=== PATIENT | female | born 1965 ===

== ENCOUNTER 2017-02-04 11:07 | Inpatient (IN) | payer MEDICARE ==
[2017-02-04 11:13] VITALS: BMI 28.3
[2017-02-04] MEDS ORDERED: Iohexol 240 (50 ml) PO ONE (12:00)
[2017-02-04] MEDS ORDERED: Iohexol 240 (50 ml) ONE (12:07)
--- NOTE | 2017-02-04 12:16 | ED PDOC ---
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 Pain is mostly right sided with radiation to the back. Pain is associated with nausea but no vomiting. Denies similar pain in the past. Past Medical History Reviewed: Historical Data, Nursing Documentation, Vital Signs Vital Signs: Last Vital Signs Temp 98 F 02/04/17 11:11 Pulse 71 02/04/17 11:11 Resp BP 143/86 02/04/17 11:11 Pulse Ox 100 02/04/17 15:03 - Medical History PMH: HTN, Migraine Denies: Chronic Kidney Disease - Surgical History Surgical History: Appendectomy - Family History Family History: States: Unknown Family Hx - Living Arrangements Living Arrangements: With Family - Home Medications Home Medications: Ambulatory Orders Medication Instructions Recorded Aspirin [Aspirin EC] 325 mg PO DAILY 01/14/17 Omeprazole 01/14/17 traMADol [Ultram] 25 mg PO TID PRN #30 tab 01/15/17 - Allergies Allergies/Adverse Reactions: Allergies Allergy/AdvReac Type Severity Reaction Status Date / Time No Known Allergies Allergy Verified 02/04/17 11:34 Review of Systems ROS Statement: Except As Marked, All Systems Reviewed And Found Negative Constitutional: Negative for: Fever, Chills Cardiovascular: Negative for: Chest Pain Respiratory: Negative for: Shortness of Breath Gastrointestinal: Positive for: Nausea, Abdominal Pain. Negative for: Vomiting , Diarrhea Genitourinary Female: Negative for: Dysuria, Hematuria Musculoskeletal: Positive for: Back Pain Neurological: Negative for: Weakness, Numbness Physical Exam - Reviewed Nursing Documentation Reviewed: Yes Vital Signs Reviewed: Yes - Physical Exam Appears: Positive for: Uncomfortable (moderate painful distress ) Skin: Positive for: Normal Color, Warm Eye Exam: Positive for: Normal appearance Neck: Positive for: Normal, Painless ROM Cardiovascular/Chest: Positive for: Regular Rate, Rhythm. Negative for: Murmur Respiratory: Positive for: Normal Breath Sounds. Negative for: Respiratory Distress Gastrointestinal/Abdominal: Positive for: Tenderness (moderate right sided). Negative for: Distended, Guarding, Rebound Back: Positive for: Normal Inspection, L CVA Tenderness, R CVA Tenderness Extremity: Positive for: Normal ROM Neurologic/Psych: Positive for: Alert, Oriented - Laboratory Results Result Diagrams: 02/04/17 12:26 02/04/17 12:26 - ECG O2 Sat by Pulse Oximetry: 100 (RA) Pulse Ox Interpretation: Normal Medical Decision Making Medical Decision Making: Time: Initial impression: Abdominal pain Initial plan: -- CT-abdomen -- EKG -- Amylase -- CMP -- UDS -- Lipase -- Troponin -- Urine preg -- CBC -- Morphine -- Toradol -- Zofran -- U/A Scribe Attestation: Documented by Jenny Fermin acting as a scribe for Guzman Chaudhari PA-C. MD Scribe Attestation: All medical record entries made by the Scribe were at my direction and personally dictated by me. I have reviewed the chart and agree that the record accurately reflects my personal performance of the history, physical exam, medical decision making, and the department course for this patient. I have also personally directed, reviewed, and agree with the discharge instructions and disposition. Labs reviewed 13.4 WBC count, LFT, lipase, trop normal CT: IMPRESSION: Hepatomegaly. Multiple small nonspecific low-attenuation lesions in the right and left hepatic lobes, nonspecific. No biliary dilatation. Dilated pancreatic duct with intermediate attenuation material in distal CBD at the level of the ampulla. Possible choledocholithiasis. Consider neoplasm or sludge. Recommend ERCP or MRCP. Small hiatal hernia. Colonic diverticulosis without diverticulitis. pain has improved. still with tenderness to the mid abdomen, improved. no further nausea. discussed CT results with her and need for further inpatient evaluation. all questions answered. patient with no PMD at this hospital. 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 Case discussed with Dr. Lawson in detail, including H&P, labs, CT finding and agrees with admission. Requests GI. agrees with chris. Case discussed with Dr. Lenka FLORES, recommends MRCP- ordered. will follow. ED OBSERVATION Date of observation admission: 02/04/17 Time of observation admission: 12:07 - Observation admission statement Patient is being placed in observation because:: Pending CT and labs Disposition - Clinical Impression Clinical Impression: Abdominal pain, Choledocholithiasis, Urinary tract infection - Patient ED Disposition Is Patient to be Admitted: Yes Counseled Patient/Family Regarding: Studies Performed, Diagnosis - Disposition Disposition Time: 15:59 Condition: IMPROVED - Pt Status Changed To: Hospital Disposition Of: Inpatient - Admit Certification Admit to Inpatient:: After my assessment, the patient will require hospitalization for at least two midnights. This is because of the severity of symptoms shown, intensity of services needed, and/or the medical risk in this patient being treated as an outpatient. - POA Present On Arrival: None
[2017-02-04 12:36] LABS: BASO # 0.1 K/uL (0.0-0.2); BASO % 0.4 % (0.0-2.0); EOS # 0.2 K/uL (0.0-0.7); EOS % 1.6 % (0.0-4.0); HEMATOCRIT 40.2 % (34.0-47.0); LYMPH # 2.3 K/uL (1.0-4.3); LYMPH % 16.9 % (20.0-40.0); MEAN CELL VOLUME 91.6 fl (81.0-99.0); MEAN CORPUSCULAR HEMOGLOBIN 29.8 pg (27.0-31.0); MEAN CORPUSCULAR HGB CONC 32.5 g/dL (33.0-37.0); MEAN PLATELET VOLUME 9.4 fl (7.2-11.7); MONO % 7.5 % (0.0-10.0); NEUT # 9.9 K/uL (1.8-7.0); NEUT % 73.6 % (50.0-75.0); NRBC % 0.2 % (0.0-0.0); RBC URINE 17 /hpf (0-3); RED CELL DISTRIBUTION WIDTH 13.8 % (11.5-14.5); URINE BACTERIA RARE (<OCC); URINE BILIRUBIN NEGATIVE (NEGATIVE); URINE BLOOD MODERATE (NEGATIVE); URINE COLOR STRAW (YELLOW); URINE GLUCOSE (UA) NEG (Normal); URINE KETONE NEGATIVE (NEGATIVE); URINE LEUKOCYTE ESTERASE SMALL Leu/uL (Negative); URINE PROTEIN NEGATIVE (NEGATIVE); URINE UROBILINOGEN 0.2-1.0 mg/dL (0.2-1.0); WBC URINE < 1 /hpf (0-5); WHITE BLOOD COUNT 13.4 K/uL (4.8-10.8)
[2017-02-04 12:41] LABS: ALB/GLOB RATIO 1.3 (1.0-2.1); ALKALINE PHOSPHATASE 67 U/L (38-126); ALT/SGPT 27 U/L (9-52); AMYLASE 107 U/L (30-110); AST/SGOT 27 U/L (14-36); BILIRUBIN,TOTAL 0.2 mg/dl (0.2-1.3); BLOOD UREA NITROGEN 17 mg/dl (7-17); CALCIUM 9.7 mg/dL (8.4-10.2); CARBON DIOXIDE 26 mmol/L (22-30); CHLORIDE 105 mmol/L (98-107); GFR AFRICAN-AMERICAN > 60; GLUCOSE,RANDOM 89 mg/dL (65-105); LIPASE 151 U/L (23-300); POTASSIUM 3.7 MMOL/L (3.6-5.0); SODIUM 139 mmol/l (132-148); TOTAL PROTEIN 7.6 G/DL (6.3-8.2)
[2017-02-04] MEDS ORDERED: Iohexol 300 100 ML IJ ONE (13:28)
[2017-02-04] MEDS ORDERED: Sodium Chloride 0.9% 100 ML ONE (13:28)
--- NOTE | 2017-02-04 14:42 | CT ---
PROCEDURE: CT Abdomen and Pelvis with contrast HISTORY: abdominal pain COMPARISON: 02/28/2014 TECHNIQUE: Contrast dose: 95 mL Omnipaque 300 Radiation dose: Total exam DLP = 604.22 mGy-cm. FINDINGS: LOWER THORAX: Very small hiatal hernia. No infiltrate/effusion. LIVER: Multiple very small low-attenuation lesions in both the right and left lobe of the liver common nonspecific. Comparison to prior examination is grossly limited due to the absence of intravenous contrast on the prior examination and the resulting lack of con spicule ET of these lesions. Several of them are nevertheless evidenced on prior examination. No large mass. No biliary dilatation. Hepatomegaly. The liver measures 20.2 cm craniocaudal. Smooth contour. GALLBLADDER AND BILE DUCTS: Unremarkable. PANCREAS: No mass. Mild pancreatic ductal dilatation. There is intermediate attenuation in the distal common bile duct, at the level of the ampulla. This may represent a noncalcified gallstone or may represent sludge or neoplasm. Further evaluation is advised. Consider ERCP or MRCP. There is no dilatation of the common bile duct. SPLEEN: Unremarkable. ADRENALS: Unremarkable. No mass. KIDNEYS AND URETERS: Unremarkable. No hydronephrosis. No solid mass. VASCULATURE: Unremarkable. No aortic aneurysm. BOWEL: Diverticulosis of the transverse colon with sigmoid diverticulosis and few scattered diverticulae elsewhere. No evidence of diverticulitis. No bowel obstruction. APPENDIX: Not identified. PERITONEUM: Unremarkable. No free fluid. No free air. LYMPH NODES: Unremarkable. No enlarged lymph nodes. BLADDER: Unremarkable. REPRODUCTIVE: Unremarkable uterus. BONES: No acute fracture. OTHER FINDINGS: None. IMPRESSION: Hepatomegaly. Multiple small nonspecific low-attenuation lesions in the right and left hepatic lobes, nonspecific. No biliary dilatation. Dilated pancreatic duct with intermediate attenuation material in distal CBD at the level of the ampulla. Possible choledocholithiasis. Consider neoplasm or sludge. Recommend ERCP or MRCP. Small hiatal hernia. Colonic diverticulosis without diverticulitis.
[2017-02-04] MEDS ORDERED: Piperacillin/Tazobact 3.375 gm Inj IVPB ONE (15:38)
[2017-02-04] MEDS ORDERED: Piperacillin/Tazobact 3.375 GM in Sodium Chloride 0.9% 100 ML IVPB ONE (15:45)
--- NOTE | 2017-02-04 19:15 | CP.PCM.CON ---
History of Present Illness - History of Present Illness History of Present Illness: 51 YO FEMALE WITH HX OF ABD PAIN ON AND OFF SINCE January DENIES FEVER CHILLS PAIN MAINLY RUQ AND MID EPIGASTRIC ID CALLED FOR EMPIRIC IV ANTBIOTICS POSSIBLE ASCENDING CHOLANGITIS GI ON BOARD : FOR ERCP IN AM CT: IMPRESSION: Hepatomegaly. Multiple small nonspecific low-attenuation lesions in the right and left hepatic lobes, nonspecific. No biliary dilatation. Dilated pancreatic duct with intermediate attenuation material in distal CBD at the level of the ampulla. Possible choledocholithiasis. Consider neoplasm or sludge. Recommend ERCP or MRCP. Small hiatal hernia. Colonic diverticulosis without diverticulitis. Past Patient History - Past Medical History & Family History Past Medical History?: Yes - Past Social History Smoking Status: Never Smoked - CARDIAC Hx Cardiac Disorders: Yes Hx Hypertension: Yes - PULMONARY Hx Respiratory Disorders: Yes Other/Comment: RT lung nodule - NEUROLOGICAL Hx Neurological Disorder: Yes Hx Migraine: Yes - HEENT Hx HEENT Problems: No - RENAL Hx Chronic Kidney Disease: No - ENDOCRINE/METABOLIC Hx Endocrine Disorders: No - HEMATOLOGICAL/ONCOLOGICAL Hx Blood Disorders: No - INTEGUMENTARY Hx Dermatological Problems: No - MUSCULOSKELETAL/RHEUMATOLOGICAL Hx Musculoskeletal Disorders: Yes Hx Falls: Yes (Jun 2016, landed on back) - GASTROINTESTINAL Hx Gastrointestinal Disorders: No - GENITOURINARY/GYNECOLOGICAL Hx Genitourinary Disorders: No - PSYCHIATRIC Hx Psychophysiologic Disorder: No Hx Substance Use: No - SURGICAL HISTORY Hx Surgeries: Yes Hx Appendectomy: Yes Other/Comment: Rt arm surgeries x2. Abdominal surgery due to adhiscence - ANESTHESIA Hx Anesthesia: Yes Hx Anesthesia Reactions: No Meds Allergies/Adverse Reactions: Allergies Allergy/AdvReac Type Severity Reaction Status Date / Time No Known Allergies Allergy Verified 02/04/17 11:34 - Medications Medications: Current Medications Acetaminophen (Tylenol 325mg Tab) 650 mg PO Q6 PRN PRN Reason: Pain, Mild (1-3) Enoxaparin Sodium (Lovenox) 40 mg SC DAILY [facility] PRN Reason: Protocol Sodium Chloride (Sodium Chloride 0.45%) 1,000 mls @ 100 mls/hr IV .Q10H [facility] Stop: 02/05/17 19:01 Piperacillin Sod/Tazobactam (Sod 3.375 gm/ Sodium Chloride) 100 mls @ 100 mls/ hr IVPB Q6 [facility] Isosorbide Mononitrate (Imdur) 30 mg PO DAILY [facility] Ketorolac Tromethamine (Toradol) 15 mg IVP Q6 PRN PRN Reason: Pain, moderate (4-7) Losartan Potassium (Cozaar) 25 mg PO DAILY [facility] Morphine Sulfate (Morphine) 2 mg IVP Q6 PRN PRN Reason: Pain, severe (8-10) Ondansetron HCl (Zofran Inj) 4 mg IVP Q6 PRN PRN Reason: Nausea/Vomiting Results - Vital Signs Recent Vital Signs: Last Vital Signs Temp 97.9 F 02/04/17 18:05 Pulse 57 L 02/04/17 18:05 Resp 18 02/04/17 18:20 BP 156/87 H 02/04/17 18:05 Pulse Ox 99 02/04/17 18:05 - Labs Result Diagrams: 02/04/17 12:26 02/04/17 12:26
[2017-02-04] MEDS: Sodium Chloride 0.45% 1,000 ML IV SCH (20:41)
[2017-02-04] MEDS: Piperacillin/Tazobact 3.375 GM in Sodium Chloride 0.9% 100 ML IVPB SCH (22:07)
--- NOTE | 2017-02-04 22:30 | CP.PCM.HP ---
Past Patient History - Past Medical History & Family History Past Medical History?: Yes - Past Social History Smoking Status: Never Smoked - CARDIAC Hx Cardiac Disorders: Yes Hx Hypertension: Yes - PULMONARY Hx Respiratory Disorders: Yes Other/Comment: RT lung nodule - NEUROLOGICAL Hx Neurological Disorder: Yes Hx Migraine: Yes - HEENT Hx HEENT Problems: No - RENAL Hx Chronic Kidney Disease: No - ENDOCRINE/METABOLIC Hx Endocrine Disorders: No - HEMATOLOGICAL/ONCOLOGICAL Hx Blood Disorders: No - INTEGUMENTARY Hx Dermatological Problems: No - MUSCULOSKELETAL/RHEUMATOLOGICAL Hx Musculoskeletal Disorders: Yes Hx Falls: Yes (Jun 2016, landed on back) - GASTROINTESTINAL Hx Gastrointestinal Disorders: No - GENITOURINARY/GYNECOLOGICAL Hx Genitourinary Disorders: No - PSYCHIATRIC Hx Psychophysiologic Disorder: No Hx Substance Use: No - SURGICAL HISTORY Hx Surgeries: Yes Hx Appendectomy: Yes Other/Comment: Rt arm surgeries x2. Abdominal surgery due to adhiscence - ANESTHESIA Hx Anesthesia: Yes Hx Anesthesia Reactions: No Meds Allergies/Adverse Reactions: Allergies Allergy/AdvReac Type Severity Reaction Status Date / Time No Known Allergies Allergy Verified 02/04/17 11:34 Results - Vital Signs Recent Vital Signs: Last Vital Signs Temp 98.3 F 02/04/17 21:49 Pulse 70 02/04/17 21:49 Resp 20 02/04/17 21:49 BP 121/76 02/04/17 21:49 Pulse Ox 96 02/04/17 21:49 - Labs Result Diagrams: 02/04/17 12:26 02/04/17 12:26
[2017-02-05] MEDS: Piperacillin/Tazobact 3.375 GM in Sodium Chloride 0.9% 100 ML IVPB SCH ×4 (05:35→21:21)
[2017-02-05] MEDS: Sodium Chloride 0.45% 1,000 ML IV SCH (06:35)
[2017-02-05 07:11] LABS: ALB/GLOB RATIO 1.3 (1.0-2.1); ALKALINE PHOSPHATASE 63 U/L (38-126); ALT/SGPT 28 U/L (9-52); AST/SGOT 19 U/L (14-36); BILIRUBIN,TOTAL 0.2 mg/dl (0.2-1.3); BLOOD UREA NITROGEN 16 mg/dl (7-17); CALCIUM 8.9 mg/dL (8.4-10.2); CARBON DIOXIDE 25 mmol/L (22-30); CHLORIDE 107 mmol/L (98-107); GFR AFRICAN-AMERICAN > 60; GLUCOSE,RANDOM 89 mg/dL (65-105); POTASSIUM 4.1 MMOL/L (3.6-5.0); SODIUM 144 mmol/l (132-148); TOTAL PROTEIN 6.2 G/DL (6.3-8.2)
[2017-02-05 07:23] LABS: BASO % 0.5 % (0.0-2.0); EOS # 0.2 K/uL (0.0-0.7); EOS % 3.4 % (0.0-4.0); HEMATOCRIT 38.1 % (34.0-47.0); LYMPH # 1.7 K/uL (1.0-4.3); LYMPH % 23.7 % (20.0-40.0); MEAN CELL VOLUME 91.6 fl (81.0-99.0); MEAN CORPUSCULAR HEMOGLOBIN 30.2 pg (27.0-31.0); MEAN PLATELET VOLUME 9.4 fl (7.2-11.7); MONO # 0.6 K/uL (0.0-0.8); MONO % 8.9 % (0.0-10.0); NEUT # 4.5 K/uL (1.8-7.0); NEUT % 63.5 % (50.0-75.0); RED CELL DISTRIBUTION WIDTH 13.3 % (11.5-14.5); WHITE BLOOD COUNT 7.1 K/uL (4.8-10.8)
--- NOTE | 2017-02-05 08:03 | CARD ---
APPROVED REPORT EKG Measurement Heart [id number] [place] [id number] <Conclusion> Sinus bradycardia Abnormal ECG
[2017-02-05] MEDS ORDERED: Gadodiamide 287 MG/ML VIAL (15ML) IV ONE (09:56)
--- NOTE | 2017-02-05 12:13 | MRI ---
MRI abdomen without/with IV contrast MRCP Indication: Abdominal pain, dilated CBD Technique: Multiplanar, multi sequence magnetic resonance images of the abdomen were obtained without and with the administration of intravenous gadolinium using a multi phase abdomen protocol. Rotating maximum intensity projection images of the biliary system were generated. A total of 1098 images submitted for review Comparison: CT abdomen and pelvis with contrast performed 02/04/17 Findings: Hepatomegaly. The liver demonstrate several too small to characterize nonenhancing T1 hypo intensities. No areas of abnormal hepatic enhancement appreciated. No intrahepatic biliary ductal dilatation identified. The gallbladder appears unremarkable. There is no intrahepatic biliary ductal dilatation. The common bile duct appears within normal limits in caliber and tapers distally. The pancreatic duct appears within normal limits of caliber. No filling defects are seen in the common bile duct or pancreatic duct. The spleen, pancreas, and adrenal glands appear unremarkable. 1.5 cm left renal T1 hypointense/T2 hyperintense nonenhancing lesion compatible with a simple cyst. No hydronephrosis or obstructing calculus. No bulky lymphadenopathy identified. Small hiatal hernia. Limited views of the inferior thorax appear unremarkable. Impression: Hepatomegaly. Too small to characterize enhancing T1 hypo intense/ T2 hyperintense foci, most likely cysts. The common bile duct appears within normal limits of caliber without focal filling defect. 1.5 cm left renal cyst. Small hiatal hernia.
--- NOTE | 2017-02-05 12:49 | CP.PCM.CON ---
History of Present Illness - History of Present Illness History of Present Illness: Asked by Dr. Lawson for a GI consultation on this patient CC: abdominal pain HPI: This is a 51 year old female with history of HTN who presents to hospital with 1 -2 day complaint of abdominal pain associated with nausea. She states that for the past several weeks she has been having intermittent chest discomfort without dyspnea. She states that her abdominal pain is constant and throughout her abdomen, but most prominent in epigastrium. No dysphagia or odynophagia. No unintentional weight loss. No jaundice. No change in bowel habits. No diarrhea/constipation, rectal bleeding/melena/hematochezia. She has never had similar abdominal pain the past. No prior endoscopic evaluation. PMHx/PSHx: as above Medications: losartan Allergies: NKDA ROS: as per HPI otherwise negative in detail SH: denies tobacco, etoh or illicits FH: mother with stroke, father with HTN Review of Systems - Constitutional Constitutional: absent: Weight Loss - Cardiovascular Cardiovascular: Chest Pain - Respiratory Respiratory: absent: Cough, Dyspnea - Gastrointestinal Gastrointestinal: As Per HPI - Musculoskeletal Musculoskeletal: absent: Myalgias - Neurological Neurological: absent: Weakness - Psychiatric Psychiatric: absent: Anxiety, Depression Past Patient History - Past Medical History & Family History Past Medical History?: Yes - Past Social History Smoking Status: Never Smoked - CARDIAC Hx Cardiac Disorders: Yes Hx Hypertension: Yes - PULMONARY Hx Respiratory Disorders: Yes Other/Comment: RT lung nodule - NEUROLOGICAL Hx Neurological Disorder: Yes Hx Migraine: Yes - HEENT Hx HEENT Problems: No - RENAL Hx Chronic Kidney Disease: No - ENDOCRINE/METABOLIC Hx Endocrine Disorders: No - HEMATOLOGICAL/ONCOLOGICAL Hx Blood Disorders: No - INTEGUMENTARY Hx Dermatological Problems: No - MUSCULOSKELETAL/RHEUMATOLOGICAL Hx Musculoskeletal Disorders: Yes Hx Falls: Yes (Jun 2016, landed on back) - GASTROINTESTINAL Hx Gastrointestinal Disorders: No - GENITOURINARY/GYNECOLOGICAL Hx Genitourinary Disorders: No - PSYCHIATRIC Hx Psychophysiologic Disorder: No Hx Substance Use: No - SURGICAL HISTORY Hx Surgeries: Yes Hx Appendectomy: Yes Other/Comment: Rt arm surgeries x2. Abdominal surgery due to adhiscence - ANESTHESIA Hx Anesthesia: Yes Hx Anesthesia Reactions: No Meds Allergies/Adverse Reactions: Allergies Allergy/AdvReac Type Severity Reaction Status Date / Time No Known Allergies Allergy Verified 02/04/17 11:34 - Medications Medications: Current Medications Acetaminophen (Tylenol 325mg Tab) 650 mg PO Q6 PRN PRN Reason: Pain, Mild (1-3) Enoxaparin Sodium (Lovenox) 40 mg SC DAILY [facility] PRN Reason: Protocol Sodium Chloride (Sodium Chloride 0.45%) 1,000 mls @ 100 mls/hr IV .Q10H [facility] Stop: 02/05/17 19:01 Last Admin: 02/05/17 06:35 Dose: 100 mls/hr Piperacillin Sod/Tazobactam (Sod 3.375 gm/ Sodium Chloride) 100 mls @ 100 mls/ hr IVPB Q6 [facility] Last Admin: 02/05/17 09:16 Dose: 100 mls/hr Isosorbide Mononitrate (Imdur) 30 mg PO DAILY [facility] Ketorolac Tromethamine (Toradol) 15 mg IVP Q6 PRN PRN Reason: Pain, moderate (4-7) Last Admin: 02/05/17 09:12 Dose: 15 mg Losartan Potassium (Cozaar) 25 mg PO DAILY [facility] Morphine Sulfate (Morphine) 2 mg IVP Q6 PRN PRN Reason: Pain, severe (8-10) Ondansetron HCl (Zofran Inj) 4 mg IVP Q6 PRN PRN Reason: Nausea/Vomiting Pantoprazole Sodium (Protonix Inj) 40 mg IVP DAILY [facility] Sucralfate (Carafate Oral Susp) 1 gm PO QID [facility] Physical Exam - Constitutional Appears: No Acute Distress - Eye Exam Eye Exam: absent: Scleral icterus - ENT Exam ENT Exam: Mucous Membranes Moist - Respiratory Exam Respiratory Exam: Clear to Auscultation Bilateral - Cardiovascular Exam Cardiovascular Exam: +S1, +S2 - GI/Abdominal Exam Additional comments: abdomen soft, mild TTP in epigastrium without rebound or guarding, bowel sounds present, no palpable mass - Extremities Exam Extremities exam: Negative for: pedal edema - Neurological Exam Neurological exam: Alert, Oriented x3 - Skin Skin Exam: Dry Results - Vital Signs Recent Vital Signs: Last Vital Signs Temp 98.3 F 02/05/17 08:37 Pulse 63 02/05/17 08:37 Resp 20 02/05/17 08:37 BP 129/75 02/05/17 08:37 Pulse Ox 99 02/05/17 08:37 - Labs Result Diagrams: 02/05/17 05:50 02/05/17 05:50 Labs: Laboratory Results - last 24 hr 02/05/17 05:50 WBC 7.1 RBC 4.16 Hgb 12.6 Hct 38.1 MCV 91.6 MCH 30.2 MCHC 33.0 RDW 13.3 Plt Count 196 MPV 9.4 Neut % (Auto) 63.5 Lymph % (Auto) 23.7 [place] % (Auto) 8.9 Eos % (Auto) 3.4 Baso % (Auto) 0.5 Neut # 4.5 Lymph # 1.7 [place] # 0.6 Eos # 0.2 Baso # 0.0 Sodium 144 Potassium 4.1 Chloride 107 Carbon Dioxide 25 Anion Gap 15 BUN 16 Creatinine 0.6 L Est GFR ( Amer) > 60 Est GFR (Non-Af Amer) > 60 Random Glucose 89 Calcium 8.9 Total Bilirubin 0.2 AST 19 ALT 28 Alkaline Phosphatase 63 Total Protein 6.2 L Albumin 3.5 Globulin 2.7 Albumin/Globulin Ratio 1.3 Assessment & Plan - Assessment and Plan (Free Text) Assessment: This is a 51 year old female with h/o HTN who presents to hospital with complaint of abdominal pain and nausea. On CT imaging, she is found to have possible choledocholithiasis, ?PD dilation. Her LFTs are normal and she is afebrile. She had leukocytosis on admission, which is now resolved. MRCP without any ductal abnormality. No chemical evidence of pancreatitis. Plan: Continue supportive care Pain control as needed Antiemetic therapy as needed PPI daily Monitor LFTs Start liquid diet as tolerated Will continue to follow and make recommendations pending clinical course D/w primary medical team
[2017-02-05] MEDS ORDERED: Sterile Water 10 ML IV ONE (13:13)
[2017-02-05] MEDS: Sucralfate 1 gm/10 ml Oral Susp UD PO SCH ×3 (14:10→21:20)
[2017-02-05] MEDS: Enoxaparin 40 mg Syringe SC SCH (14:12)
--- NOTE | 2017-02-05 14:16 | CP.PCM.PN ---
Subjective - Date & Time of Evaluation Date of Evaluation: 02/05/17 Time of Evaluation: 10:00 - Subjective Subjective: 51 year old female with h/o HTN who presents to hospital with complaint of abdominal pain and nausea. On CT imaging, she is found to have possible choledocholithiasis, Her LFTs are normal and she is afebrile. She had leukocytosis on admission, which is now resolved. MRCP without any ductal abnormality. No chemical evidence of pancreatitis. OK to d/c antibiotics if blood c/s negative Objective - Vital Signs/Intake and Output Vital Signs (last 24 hours): Temp Pulse Resp BP Pulse Ox 98.3 F 70 20 129/75 99 02/05/17 08:37 02/05/17 14:10 02/05/17 08:37 02/05/17 14:10 02/05/17 08:37 - Medications Medications: Current Medications Acetaminophen (Tylenol 325mg Tab) 650 mg PO Q6 PRN PRN Reason: Pain, Mild (1-3) Dicyclomine HCl (Bentyl) 20 mg PO TID [facility] Last Admin: 02/05/17 14:10 Dose: 20 mg Enoxaparin Sodium (Lovenox) 40 mg SC DAILY [facility] PRN Reason: Protocol Last Admin: 02/05/17 14:12 Dose: 40 mg Sodium Chloride (Sodium Chloride 0.45%) 1,000 mls @ 100 mls/hr IV .Q10H [facility] Stop: 02/05/17 19:01 Last Admin: 02/05/17 06:35 Dose: 100 mls/hr Piperacillin Sod/Tazobactam (Sod 3.375 gm/ Sodium Chloride) 100 mls @ 100 mls/ hr IVPB Q6 [facility] Last Admin: 02/05/17 09:16 Dose: 100 mls/hr Isosorbide Mononitrate (Imdur) 30 mg PO DAILY [facility] Last Admin: 02/05/17 14:11 Dose: 30 mg Ketorolac Tromethamine (Toradol) 15 mg IVP Q6 PRN PRN Reason: Pain, moderate (4-7) Last Admin: 02/05/17 09:12 Dose: 15 mg Losartan Potassium (Cozaar) 25 mg PO DAILY [facility] Last Admin: 02/05/17 14:10 Dose: 25 mg Morphine Sulfate (Morphine) 2 mg IVP Q6 PRN PRN Reason: Pain, severe (8-10) Ondansetron HCl (Zofran Inj) 4 mg IVP Q6 PRN PRN Reason: Nausea/Vomiting Pantoprazole Sodium (Protonix Inj) 40 mg IVP DAILY [facility] Last Admin: 02/05/17 14:12 Dose: 40 mg Sucralfate (Carafate Oral Susp) 1 gm PO QID [facility] Last Admin: 02/05/17 14:10 Dose: 1 gm - Labs Labs: 02/05/17 05:50 02/05/17 05:50 - Constitutional Appears: Non-toxic, Chronically Ill - Head Exam Head Exam: NORMOCEPHALIC - Eye Exam Eye Exam: PERRL. absent: Scleral icterus - ENT Exam ENT Exam: Mucous Membranes Dry - Neck Exam Neck Exam: absent: Lymphadenopathy - Respiratory Exam Respiratory Exam: Decreased Breath Sounds - Cardiovascular Exam Cardiovascular Exam: REGULAR RHYTHM, +S1, +S2 - GI/Abdominal Exam GI & Abdominal Exam: Distended, Soft. absent: Tenderness - Exam Exam: NORMAL INSPECTION Assessment and Plan - Assessment and Plan (Free Text) Assessment: OK to d/c antibiotics if blood c/s negative
--- NOTE | 2017-02-06 00:42 | CP.PCM.PN ---
Subjective - Date & Time of Evaluation Date of Evaluation: 02/05/17 Time of Evaluation: 23:40 Objective - Vital Signs/Intake and Output Vital Signs (last 24 hours): Temp Pulse Resp BP Pulse Ox 97.9 F 55 L 18 111/70 97 02/05/17 21:13 02/05/17 21:13 02/05/17 21:13 02/05/17 21:13 02/05/17 21:13 - Medications Medications: Current Medications Acetaminophen (Tylenol 325mg Tab) 650 mg PO Q6 PRN PRN Reason: Pain, Mild (1-3) Dicyclomine HCl (Bentyl) 20 mg PO TID [facility] Last Admin: 02/05/17 16:34 Dose: 20 mg Enoxaparin Sodium (Lovenox) 40 mg SC DAILY [facility] PRN Reason: Protocol Last Admin: 02/05/17 14:12 Dose: 40 mg Piperacillin Sod/Tazobactam (Sod 3.375 gm/ Sodium Chloride) 100 mls @ 100 mls/ hr IVPB Q6 [facility] Last Admin: 02/05/17 21:21 Dose: 100 mls/hr Isosorbide Mononitrate (Imdur) 30 mg PO DAILY [facility] Last Admin: 02/05/17 14:11 Dose: 30 mg Ketorolac Tromethamine (Toradol) 15 mg IVP Q6 PRN PRN Reason: Pain, moderate (4-7) Last Admin: 02/05/17 22:44 Dose: 15 mg Losartan Potassium (Cozaar) 25 mg PO DAILY [facility] Last Admin: 02/05/17 14:10 Dose: 25 mg Morphine Sulfate (Morphine) 2 mg IVP Q6 PRN PRN Reason: Pain, severe (8-10) Last Admin: 02/05/17 21:16 Dose: 2 mg Ondansetron HCl (Zofran Inj) 4 mg IVP Q6 PRN PRN Reason: Nausea/Vomiting Pantoprazole Sodium (Protonix Inj) 40 mg IVP DAILY [facility] Last Admin: 02/05/17 14:12 Dose: 40 mg Sucralfate (Carafate Oral Susp) 1 gm PO QID [facility] Last Admin: 02/05/17 21:20 Dose: 1 gm - Labs Labs: 02/05/17 05:50 02/05/17 05:50
[2017-02-06] MEDS: Sodium Chloride 0.45% 1,000 ML IV SCH ×2 (03:02→17:37)
[2017-02-06] MEDS: Piperacillin/Tazobact 3.375 GM in Sodium Chloride 0.9% 100 ML IVPB SCH ×4 (04:13→21:58)
[2017-02-06] MEDS: Sucralfate 1 gm/10 ml Oral Susp UD PO SCH ×4 (08:42→21:58)
[2017-02-06] MEDS: Enoxaparin 40 mg Syringe SC SCH (08:42)
--- NOTE | 2017-02-06 10:19 | CARD ---
APPROVED REPORT EXAM: Two-dimensional and M-mode echocardiogram with Doppler, color Doppler with contrast. Other Information Quality : GoodRhythm : NSR INDICATION Hypertension/HCVD Chest Pain Echo Enhancing Agent Indication: Endocardial border delineation Agent/Amount Used: Definity 2D DIMENSIONS IVSd0.82 (0.7-1.1cm)LVDd4.88 (3.9-5.9cm) LVOT Diameter1.85 (1.8-2.4cm)PWd0.95 (0.7-1.1cm) IVSs1.12 (0.8-1.2cm)LVDs3.67 (2.5-4.0cm) FS (%) 24.8 %PWs1.19 (0.8-1.2cm) M-Mode DIMENSIONS Left Atrium (MM)3.83 (2.5-4.0cm)IVSd0.94 (0.7-1.1cm) Aortic Root2.92 (2.2-3.7cm)LVDd5.13 (4.0-5.6cm) Aortic Cusp Exc.1.93 (1.5-2.0cm)PWd0.91 (0.7-1.1cm) IVSs1.16 cmFS (%) 38 % LVDs3.17 (2.0-3.8cm)PWs1.41 cm Mitral Valve MV E Qxptfgqo33.9cm/sMV DECEL [id number] A Wttkbxsz82.5cm/s MV CTR90biZ/A ratio1.5MVA (PHT)3.74cm2 TDI Lateral E' Peak V11.57cm/sMedial E' Peak V11.33cm/sE/Lateral E'6.0 E/Medial E'6.2 Pulmonary Valve PV Peak Pijzozrd25.4cm/s Tricuspid Valve TR Peak Bozhmitf857nj/sRAP [id number] Peak Gr.17mmHg [id number] LEFT VENTRICLE The left ventricle is normal size. There is normal left ventricular wall thickness. Left ventricle systolic function is normal. The Ejection Fraction is 65-70%. There is normal LV segmental wall motion. The left ventricular diastolic function is normal. RIGHT VENTRICLE The right ventricle is normal size. There is normal right ventricular wall thickness. The right ventricular systolic function is normal. ATRIA The left atrium size is normal. The right atrium size is normal. AORTIC VALVE The aortic valve is normal in structure and function. No aortic regurgitation is present. There is no aortic valvular stenosis. MITRAL VALVE The mitral valve is normal in structure. There is no evidence of mitral valve prolapse. There is no mitral valve stenosis. Mitral regurgitation is trace. TRICUSPID VALVE The tricuspid valve is normal in structure. There is trace to mild tricuspid regurgitation. Right ventricular systolic pressure is estimated at 27 mmHg. There is no pulmonary hypertension. PULMONIC VALVE The pulmonary valve is normal in structure and function. There is no pulmonic valvular regurgitation. GREAT VESSELS The aortic root is normal in size. The IVC is normal in size and collapses >50% with inspiration. PERICARDIAL EFFUSION The pericardium appears normal. <Conclusion> The left ventricle is normal size. There is normal left ventricular wall thickness. There is normal LV segmental wall motion. Left ventricle systolic function is normal. The Ejection Fraction is 65-70%. The left ventricular diastolic function is normal.
--- NOTE | 2017-02-06 17:34 | CP.PCM.PN ---
Subjective - Date & Time of Evaluation Date of Evaluation: 02/06/17 Time of Evaluation: 12:25 - Subjective Subjective: Patient seen and examined. No acute events. c/o abdominal pain with nausea. currently on liquid diet, tolerating. Reports 2 loose BM yesterday. No fever or chills. Objective - Vital Signs/Intake and Output Vital Signs (last 24 hours): Temp Pulse Resp BP Pulse Ox 98.3 F 60 20 164/93 H 96 02/06/17 15:59 02/06/17 15:59 02/06/17 15:59 02/06/17 15:59 02/06/17 15:59 - Medications Medications: Current Medications Acetaminophen (Tylenol 325mg Tab) 650 mg PO Q6 PRN PRN Reason: Pain, Mild (1-3) Dicyclomine HCl (Bentyl) 20 mg PO TID [facility] Last Admin: 02/06/17 16:03 Dose: 20 mg Enoxaparin Sodium (Lovenox) 40 mg SC DAILY [facility] PRN Reason: Protocol Last Admin: 02/06/17 08:42 Dose: 40 mg Piperacillin Sod/Tazobactam (Sod 3.375 gm/ Sodium Chloride) 100 mls @ 100 mls/ hr IVPB Q6 [facility] Last Admin: 02/06/17 16:03 Dose: 100 mls/hr Isosorbide Mononitrate (Imdur) 30 mg PO DAILY [facility] Last Admin: 02/06/17 08:43 Dose: 30 mg Ketorolac Tromethamine (Toradol) 15 mg IVP Q6 PRN PRN Reason: Pain, moderate (4-7) Last Admin: 02/05/17 22:44 Dose: 15 mg Losartan Potassium (Cozaar) 25 mg PO DAILY [facility] Last Admin: 02/06/17 08:42 Dose: 25 mg Morphine Sulfate (Morphine) 2 mg IVP Q6 PRN PRN Reason: Pain, severe (8-10) Last Admin: 02/06/17 11:18 Dose: 2 mg Ondansetron HCl (Zofran Inj) 4 mg IVP Q6 PRN PRN Reason: Nausea/Vomiting Pantoprazole Sodium (Protonix Inj) 40 mg IVP DAILY [facility] Last Admin: 02/06/17 08:43 Dose: 40 mg Sucralfate (Carafate Oral Susp) 1 gm PO QID [facility] Last Admin: 02/06/17 16:03 Dose: 1 gm - Labs Labs: 02/05/17 05:50 02/05/17 05:50 - Constitutional Appears: No Acute Distress - Eye Exam Eye Exam: absent: Scleral icterus - ENT Exam ENT Exam: Mucous Membranes Moist - Respiratory Exam Respiratory Exam: Clear to Ausculation Bilateral - Cardiovascular Exam Cardiovascular Exam: +S1, +S2 - GI/Abdominal Exam Additional comments: abdomen soft, mild ttp in epigastrium without rebound or guarding, bowel sounds present, no palpable mass - Neurological Exam Neurological Exam: Alert, Oriented x3 - Skin Skin Exam: Dry Assessment and Plan - Assessment and Plan (Free Text) Assessment: This is a 51 year old female with h/o HTN who presents to hospital with complaint of abdominal pain and nausea. On CT imaging, she is found to have dilated CBD/PD, normal appearing gallbladder. Her LFTs are normal and she is afebrile. She had leukocytosis on admission, which is now resolved. MRCP without any ductal abnormality, normal appearing gallbladder. Plan: Continue PPI daily Repeat bloodwork today including LFTs Antiemetic therapy as needed Pain control as needed Liquid diet as tolerated
[2017-02-06 18:01] LABS: BASO # 0.1 K/uL (0.0-0.2); BASO % 0.6 % (0.0-2.0); EOS # 0.2 K/uL (0.0-0.7); HEMATOCRIT 37.9 % (34.0-47.0); LYMPH % 24.2 % (20.0-40.0); MEAN CELL VOLUME 90.8 fl (81.0-99.0); MEAN CORPUSCULAR HEMOGLOBIN 30.2 pg (27.0-31.0); MEAN CORPUSCULAR HGB CONC 33.3 g/dL (33.0-37.0); MEAN PLATELET VOLUME 8.5 fl (7.2-11.7); MONO # 0.6 K/uL (0.0-0.8); MONO % 7.7 % (0.0-10.0); NEUT # 5.4 K/uL (1.8-7.0); NEUT % 64.5 % (50.0-75.0); NRBC % 0.2 % (0.0-0.0); RED CELL DISTRIBUTION WIDTH 13.1 % (11.5-14.5); WHITE BLOOD COUNT 8.3 K/uL (4.8-10.8)
[2017-02-06 18:17] LABS: ALB/GLOB RATIO 1.3 (1.0-2.1); ALKALINE PHOSPHATASE 64 U/L (38-126); ALT/SGPT 27 U/L (9-52); AST/SGOT 24 U/L (14-36); BILIRUBIN,TOTAL 0.7 mg/dl (0.2-1.3); BLOOD UREA NITROGEN 7 mg/dl (7-17); CALCIUM 9.2 mg/dL (8.4-10.2); CARBON DIOXIDE 24 mmol/L (22-30); CHLORIDE 106 mmol/L (98-107); GFR AFRICAN-AMERICAN > 60; GLUCOSE,RANDOM 85 mg/dL (65-105); POTASSIUM 3.7 MMOL/L (3.6-5.0); SODIUM 144 mmol/l (132-148); TOTAL PROTEIN 6.7 G/DL (6.3-8.2)
--- NOTE | 2017-02-07 00:18 | CP.PCM.PN ---
Subjective - Date & Time of Evaluation Date of Evaluation: 02/06/17 Time of Evaluation: 18:25 Objective - Vital Signs/Intake and Output Vital Signs (last 24 hours): Temp Pulse Resp BP Pulse Ox 98.3 F 51 L 18 134/79 97 02/06/17 22:49 02/06/17 22:49 02/06/17 22:49 02/06/17 22:49 02/06/17 22:49 - Medications Medications: Current Medications Acetaminophen (Tylenol 325mg Tab) 650 mg PO Q6 PRN PRN Reason: Pain, Mild (1-3) Dicyclomine HCl (Bentyl) 20 mg PO TID [facility] Last Admin: 02/06/17 16:03 Dose: 20 mg Enoxaparin Sodium (Lovenox) 40 mg SC DAILY [facility] PRN Reason: Protocol Last Admin: 02/06/17 08:42 Dose: 40 mg Piperacillin Sod/Tazobactam (Sod 3.375 gm/ Sodium Chloride) 100 mls @ 100 mls/ hr IVPB Q6 [facility] Last Admin: 02/06/17 21:58 Dose: 100 mls/hr Sodium Chloride (Sodium Chloride 0.45%) 1,000 mls @ 100 mls/hr IV .Q10H [facility] Stop: 02/07/17 17:31 Last Admin: 02/06/17 17:37 Dose: 100 mls/hr Isosorbide Mononitrate (Imdur) 30 mg PO DAILY [facility] Last Admin: 02/06/17 08:43 Dose: 30 mg Ketorolac Tromethamine (Toradol) 15 mg IVP Q6 PRN PRN Reason: Pain, moderate (4-7) Last Admin: 02/06/17 17:37 Dose: 15 mg Losartan Potassium (Cozaar) 25 mg PO DAILY [facility] Last Admin: 02/06/17 08:42 Dose: 25 mg Morphine Sulfate (Morphine) 2 mg IVP Q6 PRN PRN Reason: Pain, severe (8-10) Last Admin: 02/06/17 11:18 Dose: 2 mg Ondansetron HCl (Zofran Inj) 4 mg IVP Q6 PRN PRN Reason: Nausea/Vomiting Last Admin: 02/06/17 17:45 Dose: 4 mg Pantoprazole Sodium (Protonix Inj) 40 mg IVP DAILY [facility] Last Admin: 02/06/17 08:43 Dose: 40 mg Sucralfate (Carafate Oral Susp) 1 gm PO QID [facility] Last Admin: 02/06/17 21:58 Dose: 1 gm - Labs Labs: 02/06/17 17:51 02/06/17 17:51
[2017-02-07] MEDS: Piperacillin/Tazobact 3.375 GM in Sodium Chloride 0.9% 100 ML IVPB SCH ×2 (03:43→10:32)
[2017-02-07] MEDS: Sodium Chloride 0.45% 1,000 ML IV SCH ×3 (06:29→15:14)
[2017-02-07 08:12] LABS: BLOOD UREA NITROGEN 8 mg/dl (7-17); CALCIUM 9.1 mg/dL (8.4-10.2); CARBON DIOXIDE 26 mmol/L (22-30); CHLORIDE 106 mmol/L (98-107); GFR AFRICAN-AMERICAN > 60; GLUCOSE,RANDOM 82 mg/dL (65-105); POTASSIUM 3.6 MMOL/L (3.6-5.0); SODIUM 144 mmol/l (132-148)
[2017-02-07 08:18] LABS: BASO % 0.4 % (0.0-2.0); EOS # 0.2 K/uL (0.0-0.7); EOS % 3.1 % (0.0-4.0); HEMATOCRIT 37.7 % (34.0-47.0); LYMPH # 1.2 K/uL (1.0-4.3); LYMPH % 16.6 % (20.0-40.0); MEAN CELL VOLUME 91.5 fl (81.0-99.0); MEAN CORPUSCULAR HEMOGLOBIN 30.1 pg (27.0-31.0); MEAN CORPUSCULAR HGB CONC 32.9 g/dL (33.0-37.0); MEAN PLATELET VOLUME 9.4 fl (7.2-11.7); MONO # 0.5 K/uL (0.0-0.8); NEUT # 5.1 K/uL (1.8-7.0); NEUT % 72.9 % (50.0-75.0); NRBC % 0.2 % (0.0-0.0); RED CELL DISTRIBUTION WIDTH 13.3 % (11.5-14.5); WHITE BLOOD COUNT 7.1 K/uL (4.8-10.8)
[2017-02-07] MEDS: Sucralfate 1 gm/10 ml Oral Susp UD PO SCH ×2 (10:29→15:12)
[2017-02-07] MEDS: Enoxaparin 40 mg Syringe SC SCH (10:31)
--- NOTE | 2017-02-07 12:51 | CP.PCM.PN ---
Subjective - Date & Time of Evaluation Date of Evaluation: 02/07/17 Time of Evaluation: 08:00 - Subjective Subjective: c/o diarrhea denies fever abd pain less will d/c zosyn if ok with GI Objective - Vital Signs/Intake and Output Vital Signs (last 24 hours): Temp Pulse Resp BP Pulse Ox 97.7 F 60 20 176/74 H 98 02/07/17 08:42 02/07/17 10:30 02/07/17 08:42 02/07/17 10:30 02/07/17 08:42 - Medications Medications: Current Medications Acetaminophen (Tylenol 325mg Tab) 650 mg PO Q6 PRN PRN Reason: Pain, Mild (1-3) Dicyclomine HCl (Bentyl) 20 mg PO TID [facility] Last Admin: 02/07/17 10:29 Dose: 20 mg Enoxaparin Sodium (Lovenox) 40 mg SC DAILY [facility] PRN Reason: Protocol Last Admin: 02/07/17 10:31 Dose: 40 mg Piperacillin Sod/Tazobactam (Sod 3.375 gm/ Sodium Chloride) 100 mls @ 100 mls/ hr IVPB Q6 [facility] Last Admin: 02/07/17 10:32 Dose: 100 mls/hr Sodium Chloride (Sodium Chloride 0.45%) 1,000 mls @ 100 mls/hr IV .Q10H [facility] Stop: 02/07/17 17:31 Last Admin: 02/07/17 06:30 Dose: Not Given Isosorbide Mononitrate (Imdur) 30 mg PO DAILY [facility] Last Admin: 02/06/17 08:43 Dose: 30 mg Ketorolac Tromethamine (Toradol) 15 mg IVP Q6 PRN PRN Reason: Pain, moderate (4-7) Last Admin: 02/07/17 03:11 Dose: 15 mg Losartan Potassium (Cozaar) 25 mg PO DAILY [facility] Last Admin: 02/07/17 10:30 Dose: 25 mg Morphine Sulfate (Morphine) 2 mg IVP Q6 PRN PRN Reason: Pain, severe (8-10) Last Admin: 02/06/17 11:18 Dose: 2 mg Ondansetron HCl (Zofran Inj) 4 mg IVP Q6 PRN PRN Reason: Nausea/Vomiting Last Admin: 02/06/17 17:45 Dose: 4 mg Pantoprazole Sodium (Protonix Inj) 40 mg IVP DAILY [facility] Last Admin: 02/07/17 10:31 Dose: 40 mg Sucralfate (Carafate Oral Susp) 1 gm PO QID [facility] Last Admin: 02/07/17 10:29 Dose: 1 gm - Labs Labs: 02/07/17 05:30 02/07/17 05:30 - Constitutional Appears: Non-toxic, Chronically Ill - Head Exam Head Exam: NORMOCEPHALIC - Eye Exam Eye Exam: absent: Scleral icterus - ENT Exam ENT Exam: Mucous Membranes Dry - Neck Exam Neck Exam: absent: Lymphadenopathy - Respiratory Exam Respiratory Exam: Decreased Breath Sounds, Clear to Ausculation Bilateral - Cardiovascular Exam Cardiovascular Exam: REGULAR RHYTHM, +S1, +S2 - GI/Abdominal Exam GI & Abdominal Exam: Distended, Soft. absent: Tenderness Assessment and Plan - Assessment and Plan (Free Text) Assessment: all cultures neg thus far + LBM r/o c diff d/c zosyn
--- NOTE | 2017-02-07 15:38 | CP.PCM.PN ---
<Lennox Cherry - Last Filed: 02/07/17 15:36> Subjective - Date & Time of Evaluation Date of Evaluation: 02/07/17 Time of Evaluation: 11:45 - Subjective Subjective: PGY4 GI Fellow Progress Note Patient seen and examined bedside this morning. The patient is a poor historian. She states that she came to the hospital for diffuse abdominal cramping and cannot specify if any particular location is worse. On further questioning she also admits to epigastric discomfort radiating to the chest. Moreover, she admits to use of antibiotics approximately 2 months prior to admission for unclear infectious illness; does not know name of antibiotic. No recent travel or sick contacts. States that overnight she had developed multiple episodes of loose stool. Denies any discomfort at this time. 12 system ROS performed and negative except where stated. Objective - Vital Signs/Intake and Output Vital Signs (last 24 hours): Temp Pulse Resp BP Pulse Ox 97.7 F 60 20 176/74 H 98 02/07/17 08:42 02/07/17 10:30 02/07/17 08:42 02/07/17 10:30 02/07/17 08:42 - Medications Medications: Current Medications Acetaminophen (Tylenol 325mg Tab) 650 mg PO Q6 PRN PRN Reason: Pain, Mild (1-3) Dicyclomine HCl (Bentyl) 20 mg PO TID [facility] Last Admin: 02/07/17 15:12 Dose: 20 mg Enoxaparin Sodium (Lovenox) 40 mg SC DAILY [facility] PRN Reason: Protocol Last Admin: 02/07/17 10:31 Dose: 40 mg Sodium Chloride (Sodium Chloride 0.45%) 1,000 mls @ 100 mls/hr IV .Q10H [facility] Stop: 02/07/17 17:31 Last Admin: 02/07/17 15:14 Dose: 100 mls/hr Isosorbide Mononitrate (Imdur) 30 mg PO DAILY [facility] Last Admin: 02/07/17 09:15 Dose: 30 mg Ketorolac Tromethamine (Toradol) 15 mg IVP Q6 PRN PRN Reason: Pain, moderate (4-7) Last Admin: 02/07/17 03:11 Dose: 15 mg Losartan Potassium (Cozaar) 25 mg PO DAILY [facility] Last Admin: 02/07/17 10:30 Dose: 25 mg Morphine Sulfate (Morphine) 2 mg IVP Q6 PRN PRN Reason: Pain, severe (8-10) Last Admin: 02/07/17 15:09 Dose: 2 mg Ondansetron HCl (Zofran Inj) 4 mg IVP Q6 PRN PRN Reason: Nausea/Vomiting Last Admin: 02/06/17 17:45 Dose: 4 mg Pantoprazole Sodium (Protonix Inj) 40 mg IVP DAILY [facility] Last Admin: 02/07/17 10:31 Dose: 40 mg Sucralfate (Carafate Oral Susp) 1 gm PO QID [facility] Last Admin: 02/07/17 15:12 Dose: 1 gm - Labs Labs: 02/07/17 05:30 02/07/17 05:30 - Constitutional Appears: Non-toxic, No Acute Distress - Eye Exam Eye Exam: EOMI, PERRL - ENT Exam ENT Exam: Mucous Membranes Moist - Respiratory Exam Respiratory Exam: Clear to Ausculation Bilateral. absent: Rales, Rhonchi, Wheezes - Cardiovascular Exam Cardiovascular Exam: RRR, +S1, +S2 - GI/Abdominal Exam GI & Abdominal Exam: Soft, Normal Bowel Sounds. absent: Distended, Firm, Guarding, Rigid, Tenderness, Organomegaly - Extremities Exam Extremities Exam: Normal Inspection. absent: Pedal Edema - Neurological Exam Neurological Exam: Alert, Awake, Oriented x3 - Psychiatric Exam Psychiatric exam: Normal Affect, Normal Mood - Skin Skin Exam: Dry, Warm Assessment and Plan - Assessment and Plan (Free Text) Assessment: Patient is a 51yo female with PMHx significant for HTN who presents to the hospital for complaint of abdominal pain and nausea. -Abdominal pain -Diarrhea -HTN Plan: -Stool culture, O&P and C diff toxin are all pending -Recommend clear liquid diet as tolerated, do not advance -IVF as ordered -Antiemetic and analgesia per primary service -Recommend D/C Zosyn as she has now developed diarrhea since admission, possibly side effect of medication -Will D/C carafate -Pt on Bentyl TID -Conservative management, continue to monitor <Aide Salazar - Last Filed: 02/07/17 15:56> Objective - Vital Signs/Intake and Output Vital Signs (last 24 hours): Temp Pulse Resp BP Pulse Ox 97.7 F 60 20 176/74 H 98 02/07/17 08:42 02/07/17 10:30 02/07/17 08:42 02/07/17 10:30 02/07/17 08:42 - Medications Medications: Current Medications Acetaminophen (Tylenol 325mg Tab) 650 mg PO Q6 PRN PRN Reason: Pain, Mild (1-3) Dicyclomine HCl (Bentyl) 20 mg PO TID [facility] Last Admin: 02/07/17 15:12 Dose: 20 mg Enoxaparin Sodium (Lovenox) 40 mg SC DAILY [facility] PRN Reason: Protocol Last Admin: 02/07/17 10:31 Dose: 40 mg Sodium Chloride (Sodium Chloride 0.45%) 1,000 mls @ 100 mls/hr IV .Q10H [facility] Stop: 02/07/17 17:31 Last Admin: 02/07/17 15:14 Dose: 100 mls/hr Isosorbide Mononitrate (Imdur) 30 mg PO DAILY [facility] Last Admin: 02/07/17 09:15 Dose: 30 mg Ketorolac Tromethamine (Toradol) 15 mg IVP Q6 PRN PRN Reason: Pain, moderate (4-7) Last Admin: 02/07/17 03:11 Dose: 15 mg Losartan Potassium (Cozaar) 25 mg PO DAILY [facility] Last Admin: 02/07/17 10:30 Dose: 25 mg Morphine Sulfate (Morphine) 2 mg IVP Q6 PRN PRN Reason: Pain, severe (8-10) Last Admin: 02/07/17 15:09 Dose: 2 mg Ondansetron HCl (Zofran Inj) 4 mg IVP Q6 PRN PRN Reason: Nausea/Vomiting Last Admin: 02/06/17 17:45 Dose: 4 mg Pantoprazole Sodium (Protonix Inj) 40 mg IVP DAILY [facility] Last Admin: 02/07/17 10:31 Dose: 40 mg - Labs Labs: 02/07/17 05:30 02/07/17 05:30 Attending/Attestation - Attestation I have personally seen and examined this patient.: Yes I have fully participated in the care of the patient.: Yes I have reviewed all pertinent clinical information, including history, physical exam and plan: Yes Notes (Text): Patient seen and examined with GI fellow. Agree with his note as documented above with the following additions/exceptions. This is a 51 year old female who is admitted with non specific abdominal pain/nausea. Initial CT with possible biliary dilation, although MRCP negative and her LFTs are normal. She has now developed in hospital diarrhea, possibly antibiotic related. Her abdominal pain is improved today. Will obtain stool studies. Continue liquid diet as tolerated. Continue PPI therapy. Continue conservative management at present. 02/07/17 15:54
--- NOTE | 2017-02-07 22:52 | CP.PCM.PN ---
Subjective - Date & Time of Evaluation Date of Evaluation: 02/07/17 Time of Evaluation: 18:15 Objective - Vital Signs/Intake and Output Vital Signs (last 24 hours): Temp Pulse Resp BP Pulse Ox 98.5 F 58 L 18 134/76 99 02/07/17 17:00 02/07/17 17:00 02/07/17 17:00 02/07/17 17:00 02/07/17 17:00 Intake and Output: 02/07/17 02/08/17 18:59 06:59 Intake Total 1750 Balance 1750 - Medications Medications: Current Medications Acetaminophen (Tylenol 325mg Tab) 650 mg PO Q6 PRN PRN Reason: Pain, Mild (1-3) Dicyclomine HCl (Bentyl) [address] [facility] Last Admin: 02/07/17 16:39 Dose: 20 mg Enoxaparin Sodium (Lovenox) [address] [facility] PRN Reason: Protocol Last Admin: 02/07/17 10:31 Dose: 40 mg Isosorbide Mononitrate (Imdur) [address] [facility] Last Admin: 02/07/17 09:15 Dose: 30 mg Ketorolac Tromethamine (Toradol) 15 mg IVP Q6 PRN PRN Reason: Pain, moderate (4-7) Last Admin: 02/07/17 22:44 Dose: 15 mg Losartan Potassium (Cozaar) [address] [facility] Last Admin: 02/07/17 10:30 Dose: 25 mg Ondansetron HCl (Zofran Inj) 4 mg IVP Q6 PRN PRN Reason: Nausea/Vomiting Last Admin: 02/06/17 17:45 Dose: 4 mg Pantoprazole Sodium (Protonix Inj) [address] [facility] Last Admin: 02/07/17 10:31 Dose: 40 mg - Labs Labs: 02/07/17 05:30 02/07/17 05:30
[2017-02-08] MEDS: Sodium Chloride 0.9% 1,000 ML IV SCH ×3 (04:37→22:00)
[2017-02-08] MEDS: Enoxaparin 40 mg Syringe SC SCH (09:30)
--- NOTE | 2017-02-08 13:32 | CP.PCM.PN ---
<Lennox Cherry - Last Filed: 02/08/17 13:29> Subjective - Date & Time of Evaluation Date of Evaluation: 02/08/17 Time of Evaluation: 12:30 - Subjective Subjective: PGY4 GI Fellow Progress Note Patient seen and examined bedside this afternoon. The patient admits to interval improvement in abdominal pain. Continues to c/o multiple epsiodes of loose stool, sent for infectious work up. Antibiotics have been stopped. 12 system ROS performed and negative except where stated. Objective - Vital Signs/Intake and Output Vital Signs (last 24 hours): Temp Pulse Resp BP Pulse Ox 98.8 F 62 20 121/61 97 02/08/17 08:40 02/08/17 09:30 02/08/17 08:40 02/08/17 09:30 02/08/17 08:40 Intake and Output: 02/08/17 02/08/17 06:59 18:59 Intake Total 1750 Balance 1750 - Medications Medications: Current Medications Acetaminophen (Tylenol 325mg Tab) 650 mg PO Q6 PRN PRN Reason: Pain, Mild (1-3) Dicyclomine HCl (Bentyl) 20 mg PO TID [facility] Last Admin: 02/08/17 12:34 Dose: 20 mg Sodium Chloride (Sodium Chloride 0.9%) 1,000 mls @ 125 mls/hr IV .Q8H [facility] Stop: 02/09/17 03:46 Last Admin: 02/08/17 12:36 Dose: 125 mls/hr Isosorbide Mononitrate (Imdur) 30 mg PO DAILY [facility] Last Admin: 02/08/17 09:30 Dose: 30 mg Ketorolac Tromethamine (Toradol) 15 mg IVP Q6 PRN PRN Reason: Pain, moderate (4-7) Last Admin: 02/07/17 22:44 Dose: 15 mg Losartan Potassium (Cozaar) 25 mg PO DAILY [facility] Last Admin: 02/08/17 09:30 Dose: 25 mg Metronidazole (Flagyl) 500 mg PO Q8 [facility] Last Admin: 02/08/17 12:34 Dose: 500 mg Ondansetron HCl (Zofran Inj) 4 mg IVP Q6 PRN PRN Reason: Nausea/Vomiting Last Admin: 02/06/17 17:45 Dose: 4 mg Pantoprazole Sodium (Protonix Inj) 40 mg IVP DAILY [facility] Last Admin: 02/08/17 09:30 Dose: 40 mg - Labs Labs: 02/07/17 05:30 02/07/17 05:30 - Constitutional Appears: Non-toxic, No Acute Distress - Eye Exam Eye Exam: EOMI, PERRL - ENT Exam ENT Exam: Mucous Membranes Moist - Respiratory Exam Respiratory Exam: Clear to Ausculation Bilateral. absent: Rales, Rhonchi, Wheezes - Cardiovascular Exam Cardiovascular Exam: RRR, +S1, +S2 - GI/Abdominal Exam GI & Abdominal Exam: Soft, Normal Bowel Sounds. absent: Distended, Firm, Guarding, Rigid, Tenderness, Organomegaly - Extremities Exam Extremities Exam: Normal Inspection. absent: Pedal Edema - Neurological Exam Neurological Exam: Alert, Awake, Oriented x3 - Psychiatric Exam Psychiatric exam: Normal Affect, Normal Mood - Skin Skin Exam: Dry, Warm Assessment and Plan - Assessment and Plan (Free Text) Assessment: Patient is a 51yo female with PMHx significant for HTN who presents to the hospital for complaint of abdominal pain and nausea. -Abdominal pain -Diarrhea -HTN Plan: -Stool culture, O&P pending; C diff negative -Advance diet as tolerated -Antiemetic and analgesia per primary service -If infectious w/u negative and patient can tolerate diet, clear for D/C from GI standpoint -Pt on Bentyl TID <Álvaro Og MD - Last Filed: 02/08/17 17:51> Objective - Vital Signs/Intake and Output Vital Signs (last 24 hours): Temp Pulse Resp BP Pulse Ox 98.6 F 63 18 147/74 99 02/08/17 17:26 02/08/17 17:26 02/08/17 17:26 02/08/17 17:26 02/08/17 17:26 Intake and Output: 02/08/17 02/08/17 06:59 18:59 Intake Total 1750 Balance 1750 - Medications Medications: Current Medications Acetaminophen (Tylenol 325mg Tab) 650 mg PO Q6 PRN PRN Reason: Pain, Mild (1-3) Dicyclomine HCl (Bentyl) 20 mg PO TID [facility] Last Admin: 02/08/17 16:34 Dose: 20 mg Sodium Chloride (Sodium Chloride 0.9%) 1,000 mls @ 125 mls/hr IV .Q8H [facility] Stop: 02/09/17 03:46 Last Admin: 02/08/17 12:36 Dose: 125 mls/hr Isosorbide Mononitrate (Imdur) 30 mg PO DAILY [facility] Last Admin: 02/08/17 09:30 Dose: 30 mg Ketorolac Tromethamine (Toradol) 15 mg IVP Q6 PRN PRN Reason: Pain, moderate (4-7) Last Admin: 02/07/17 22:44 Dose: 15 mg Losartan Potassium (Cozaar) 25 mg PO DAILY [facility] Last Admin: 02/08/17 09:30 Dose: 25 mg Metronidazole (Flagyl) 500 mg PO Q8 [facility] Last Admin: 02/08/17 16:34 Dose: 500 mg Ondansetron HCl (Zofran Inj) 4 mg IVP Q6 PRN PRN Reason: Nausea/Vomiting Last Admin: 02/06/17 17:45 Dose: 4 mg Pantoprazole Sodium (Protonix Inj) 40 mg IVP DAILY [facility] Last Admin: 02/08/17 09:30 Dose: 40 mg - Labs Labs: 02/07/17 05:30 02/07/17 05:30 Attending/Attestation - Attestation I have personally seen and examined this patient.: Yes I have fully participated in the care of the patient.: Yes I have reviewed all pertinent clinical information, including history, physical exam and plan: Yes Notes (Text): 02/08/17 17:50 Patient seen and examined with GI fellow. Agree with his note as documented above with the following additions/exceptions. This is a 51 year old female who is admitted with non specific abdominal pain/nausea. Initial CT with possible biliary dilation, although MRCP negative and her LFTs are normal. She has now developed in hospital diarrhea, possibly antibiotic related. Her abdominal pain is improved today with improving diarrhea and C diff negative. Advance diet as tolerated. Continue PPI therapy. Can be discharged if diarrhea resolved.
[2017-02-08 17:27] VITALS: RESP 18
[2017-02-08 22:21] VITALS: O2SAT 100
--- NOTE | 2017-02-09 00:32 | CP.PCM.PN ---
Subjective - Date & Time of Evaluation Date of Evaluation: 02/08/17 Time of Evaluation: 16:25 Objective - Vital Signs/Intake and Output Vital Signs (last 24 hours): Temp Pulse Resp BP Pulse Ox 98.6 F 58 L 18 146/81 100 02/08/17 22:22 02/08/17 22:22 02/08/17 22:22 02/08/17 22:22 02/08/17 22:22 - Medications Medications: Current Medications Acetaminophen (Tylenol 325mg Tab) 650 mg PO Q6 PRN PRN Reason: Pain, Mild (1-3) Dicyclomine HCl (Bentyl) 20 mg PO TID [facility] Last Admin: 02/08/17 16:34 Dose: 20 mg Sodium Chloride (Sodium Chloride 0.9%) 1,000 mls @ 125 mls/hr IV .Q8H [facility] Stop: 02/09/17 03:46 Last Admin: 02/08/17 22:00 Dose: 125 mls/hr Isosorbide Mononitrate (Imdur) 30 mg PO DAILY [facility] Last Admin: 02/08/17 09:30 Dose: 30 mg Ketorolac Tromethamine (Toradol) 15 mg IVP Q6 PRN PRN Reason: Pain, moderate (4-7) Last Admin: 02/07/17 22:44 Dose: 15 mg Lactobacillus Acidophilus (Bacid Acidophilus) 1 cap PO BID [facility] Losartan Potassium (Cozaar) 25 mg PO DAILY [facility] Last Admin: 02/08/17 09:30 Dose: 25 mg Metronidazole (Flagyl) 500 mg PO Q8 [facility] Last Admin: 02/08/17 16:34 Dose: 500 mg Ondansetron HCl (Zofran Inj) 4 mg IVP Q6 PRN PRN Reason: Nausea/Vomiting Last Admin: 02/06/17 17:45 Dose: 4 mg Pantoprazole Sodium (Protonix Inj) 40 mg IVP DAILY [facility] Last Admin: 02/08/17 09:30 Dose: 40 mg - Labs Labs: 02/07/17 05:30 02/07/17 05:30
--- NOTE | 2017-02-09 08:22 | CP.PCM.PN ---
Subjective - Date & Time of Evaluation Date of Evaluation: 02/09/17 Time of Evaluation: 08:21 - Subjective Subjective: PGY4 GI Fellow Progress Note Patient seen and examined bedside this morning. The patient denies any abdominal pain and ate without issue last night and again this morning. Passing loose stool, two times since 4AM. Denies any fever, chills, nausea, vomiting. 12 system ROS performed and negative except where stated. Objective - Vital Signs/Intake and Output Vital Signs (last 24 hours): Temp Pulse Resp BP Pulse Ox 98.6 F 58 L 18 146/81 100 02/08/17 22:22 02/08/17 22:22 02/08/17 22:22 02/08/17 22:22 02/08/17 22:22 - Medications Medications: Current Medications Acetaminophen (Tylenol 325mg Tab) 650 mg PO Q6 PRN PRN Reason: Pain, Mild (1-3) Dicyclomine HCl (Bentyl) 20 mg PO TID [facility] Last Admin: 02/08/17 16:34 Dose: 20 mg Isosorbide Mononitrate (Imdur) 30 mg PO DAILY [facility] Last Admin: 02/08/17 09:30 Dose: 30 mg Ketorolac Tromethamine (Toradol) 15 mg IVP Q6 PRN PRN Reason: Pain, moderate (4-7) Last Admin: 02/07/17 22:44 Dose: 15 mg Lactobacillus Acidophilus (Bacid Acidophilus) 1 cap PO BID [facility] Losartan Potassium (Cozaar) 25 mg PO DAILY [facility] Last Admin: 02/08/17 09:30 Dose: 25 mg Metronidazole (Flagyl) 500 mg PO Q8 [facility] Last Admin: 02/09/17 00:44 Dose: 500 mg Ondansetron HCl (Zofran Inj) 4 mg IVP Q6 PRN PRN Reason: Nausea/Vomiting Last Admin: 02/06/17 17:45 Dose: 4 mg Pantoprazole Sodium (Protonix Inj) 40 mg IVP DAILY [facility] Last Admin: 02/08/17 09:30 Dose: 40 mg - Labs Labs: 02/07/17 05:30 02/07/17 05:30 - Constitutional Appears: Non-toxic, No Acute Distress - Eye Exam Eye Exam: EOMI, PERRL - ENT Exam ENT Exam: Mucous Membranes Moist - Respiratory Exam Respiratory Exam: Clear to Ausculation Bilateral. absent: Rales, Rhonchi, Wheezes - Cardiovascular Exam Cardiovascular Exam: RRR, +S1, +S2 - GI/Abdominal Exam GI & Abdominal Exam: Soft, Normal Bowel Sounds. absent: Distended, Firm, Guarding, Rigid, Tenderness, Organomegaly - Extremities Exam Extremities Exam: Normal Inspection. absent: Pedal Edema - Neurological Exam Neurological Exam: Alert, Awake, Oriented x3 - Psychiatric Exam Psychiatric exam: Normal Affect, Normal Mood - Skin Skin Exam: Dry, Normal Color Assessment and Plan - Assessment and Plan (Free Text) Assessment: Patient is a 51yo female with PMHx significant for HTN who presents to the hospital for complaint of abdominal pain and nausea. -Abdominal pain -Diarrhea -HTN Plan: -Stool culture, O&P pending -C diff negative, Fecal leukocytes negative -Diet as tolerated -Antiemetic and analgesia per primary service -Patient is on Bentyl TID -Suspect 2/2 viral illness, medication side effect or IBS-D, much less likely malabsorption or microscopic colitis given sudden onset; may benefit from outpatient colonoscopy if persistent -Clear for D/C from GI standpoint
[2017-02-09 08:52] VITALS: BP 174/84; PULSE 74; TEMP 97.8
[2017-02-09] MEDS ORDERED: Lactobacillus Acidophilus 500 MU Cap PO SCH (09:00)
--- NOTE | 2017-02-09 12:15 | CP.PCM.DIS ---
Provider - Provider Date of Admission: 02/04/17 15:36 Attending physician: Aris Lawson MD Primary care physician: NO FAMILY PROVIDER Time Spent in preparation of Discharge (in minutes): 25 Hospital Course - Lab Results Lab Results: Micro Results 02/07/17 13:38 Stool Ova and Parasite Concentrate Exam - Final Most Recent Lab Values WBC 7.1 K/uL (4.8-10.8) 02/07/17 05:30 RBC 4.12 Mil/uL (3.80-5.20) 02/07/17 05:30 Hgb 12.4 g/dL (12.0-16.0) 02/07/17 05:30 Hct 37.7 % (34.0-47.0) 02/07/17 05:30 MCV 91.5 fl (81.0-99.0) 02/07/17 05:30 MCH 30.1 pg (27.0-31.0) 02/07/17 05:30 MCHC 32.9 g/dL (33.0-37.0) L 02/07/17 05:30 RDW 13.3 % (11.5-14.5) 02/07/17 05:30 Plt Count 201 K/uL (130-400) 02/07/17 05:30 MPV 9.4 fl (7.2-11.7) 02/07/17 05:30 Neut % (Auto) 72.9 % (50.0-75.0) 02/07/17 05:30 Lymph % (Auto) 16.6 % (20.0-40.0) L 02/07/17 05:30 [place] % (Auto) 7.0 % (0.0-10.0) 02/07/17 05:30 Eos % (Auto) 3.1 % (0.0-4.0) 02/07/17 05:30 Baso % (Auto) 0.4 % (0.0-2.0) 02/07/17 05:30 Neut # 5.1 K/uL (1.8-7.0) 02/07/17 05:30 Lymph # 1.2 K/uL (1.0-4.3) 02/07/17 05:30 [place] # 0.5 K/uL (0.0-0.8) 02/07/17 05:30 Eos # 0.2 K/uL (0.0-0.7) 02/07/17 05:30 Baso # 0.0 K/uL (0.0-0.2) 02/07/17 05:30 Sodium 144 mmol/l (132-148) 02/07/17 05:30 Potassium 3.6 MMOL/L (3.6-5.0) 02/07/17 05:30 Chloride 106 mmol/L (98-107) 02/07/17 05:30 Carbon Dioxide 26 mmol/L (22-30) 02/07/17 05:30 Anion Gap 16 (10-20) 02/07/17 05:30 BUN 8 mg/dl (7-17) 02/07/17 05:30 Creatinine 0.7 mg/dL (0.7-1.2) 02/07/17 05:30 Est GFR ( Amer) > 60 02/07/17 05:30 Est GFR (Non-Af Amer) > 60 02/07/17 05:30 Random Glucose 82 mg/dL (65-105) 02/07/17 05:30 Calcium 9.1 mg/dL (8.4-10.2) 02/07/17 05:30 Total Bilirubin 0.7 mg/dl (0.2-1.3) 02/06/17 17:51 AST 24 U/L (14-36) 02/06/17 17:51 ALT 27 U/L (9-52) 02/06/17 17:51 Alkaline Phosphatase 64 U/L (38-126) 02/06/17 17:51 Troponin I < 0.0120 ng/mL (0.00-0.120) 02/04/17 12:26 Total Protein 6.7 G/DL (6.3-8.2) 02/06/17 17:51 Albumin 3.8 g/dL (3.5-5.0) 02/06/17 17:51 Globulin 2.9 gm/dL (2.2-3.9) 02/06/17 17:51 Albumin/Globulin Ratio 1.3 (1.0-2.1) 02/06/17 17:51 Amylase 107 U/L (30-110) 02/04/17 12:26 Lipase 151 U/L (23-300) 02/04/17 12:26 Urine Color Straw (YELLOW) 02/04/17 12:26 Urine Clarity Clear (Clear) 02/04/17 12:26 Urine pH 7.0 (5.0-8.0) 02/04/17 12:26 Ur Specific [place] 1.009 (1.003-1.030) 02/04/17 12:26 Urine Protein Negative mg/dL (NEGATIVE) 02/04/17 12:26 Urine Glucose (UA) Neg mg/dL (Normal) 02/04/17 12:26 Urine Ketones Negative mg/dL (NEGATIVE) 02/04/17 12:26 Urine Blood Moderate (NEGATIVE) 02/04/17 12:26 Urine Nitrate Negative (NEGATIVE) 02/04/17 12:26 Urine Bilirubin Negative (NEGATIVE) 02/04/17 12:26 Urine Urobilinogen 0.2-1.0 mg/dL (0.2-1.0) 02/04/17 12:26 Ur Leukocyte Esterase Small Pinky/uL (Negative) 02/04/17 12:26 Urine RBC (Auto) 17 /hpf (0-3) H 02/04/17 12:26 Urine Microscopic WBC < 1 /hpf (0-5) 02/04/17 12:26 Ur Squamous Epith Cells 1 /hpf (0-5) 02/04/17 12:26 Urine Bacteria Rare (<OCC) 02/04/17 12:26 Stool Leukocytes, Qual Negative (NEGATIVE) 02/08/17 14:59 Urine Opiates Screen Negative (NEGATIVE) 02/04/17 12:26 Urine Methadone Screen Negative (NEGATIVE) 02/04/17 12:26 Ur Barbiturates Screen Negative (NEGATIVE) 02/04/17 12:26 Ur Phencyclidine Scrn Negative (NEGATIVE) 02/04/17 12:26 Ur Amphetamines Screen Negative (NEGATIVE) 02/04/17 12:26 U Benzodiazepines Scrn Negative (NEGATIVE) 02/04/17 12:26 U Oth Cocaine Metabols Negative (NEGATIVE) 02/04/17 12:26 U Cannabinoids Screen Negative (NEGATIVE) 02/04/17 12:26 C. difficile Ag & Toxin Negative (NEGATIVE) 02/07/17 13:38 Hepatitis A IgM Ab Negative (NEGATIVE) 02/06/17 17:51 Hep Bs Antigen Negative (NEGATIVE) 02/06/17 17:51 Hep B Core IgM Ab Negative (NEGATIVE) 02/06/17 17:51 Hepatitis C Antibody Negative (NEGATIVE) 02/06/17 17:51 Discharge Exam - Head Exam Head Exam: NORMOCEPHALIC Discharge Plan - Discharge Medications Prescriptions: Lactobacillus Acidophilus [Bacid Acidophilus] 1 cap PO BID #14 cap Dicyclomine [Bentyl] 20 mg PO TID #30 tab metroNIDAZOLE [Flagyl] 500 mg PO Q8 #15 tab Pantoprazole Sodium [Protonix] 40 mg PO DAILY #14 ect - Follow Up Plan Condition: IMPROVED Disposition: HOME/ ROUTINE Additional Instructions: patient cleared for discharge to Home today by and cont. meds ( E-rx sent to [facility]) pt. has f/u appointment w/ PMD on Wednesday f/u with GI for outpatient colonoscopy if sx persist Referrals: Tommy Peña [Staff Provider] - FAMILY PROVIDER,NO [Primary Care Provider] -
== END 2017-02-09 13:08 | disposition home or self-care (01) | DRG 392 ==
LOC: H.ER 11:07 → H.EROBSV 12:07 → OBSVTOIN 15:36 → H.ERHOLD 16:35 → H.MEDSURG1 17:23
PROVIDERS: ADMIT Internal Medicine; ATTEND Internal Medicine
DX: R10.9 Unspecified abdominal pain (principal); I10 Essential (primary) hypertension; R11.0 Nausea; R19.7 Diarrhea, unspecified

== ENCOUNTER 2018-04-15 01:19 | Emergency (ER) | payer MEDICARE ==
[2018-04-15 01:20] VITALS: BMI 28.3
[2018-04-15 01:46] VITALS: BP 147/93; PULSE 79; RESP 16; TEMP 98.5; O2SAT 100
--- NOTE | 2018-04-15 02:59 | ED PDOC ---
HPI: General Adult Time Seen by Provider: 04/15/18 02:58 Chief Complaint (Nursing): Female Genitourinary Chief Complaint (Provider): pelvic pain, sore throat History Per: Patient Additional Complaint(s): 52-year-old female presents with dysuria, pelvic pain and vaginal discharge 4 days. Patient also has lower back pain. Patient is concerned that she may have an STD secondary to recent unprotected intercourse. She denies any vaginal bleeding, no fever or chills, no flank pain, nausea or vomiting. Past Medical History Reviewed: Historical Data, Nursing Documentation, Vital Signs Vital Signs: Last Vital Signs Temp 98.5 F 04/15/18 01:41 Pulse 79 04/15/18 01:41 Resp 16 04/15/18 01:41 BP 147/93 H 04/15/18 01:41 Pulse Ox 100 04/15/18 02:59 - Medical History PMH: HTN, Migraine - Surgical History Surgical History: Appendectomy Other surgeries: right shoulder surgery - Family History Family History: States: No Known Family Hx - Living Arrangements Living Arrangements: With Family - Social History Current smoker - smoking cessation education provided: No Alcohol: None Drugs: Denies - Home Medications Home Medications: Ambulatory Orders Medication Instructions Recorded Isosorbide Mononitrate ER [Imdur 30 mg PO DAILY 02/04/17 ER] Losartan [Cozaar] 25 mg PO DAILY 02/04/17 traMADol [Ultram] 50 mg PO BID PRN 02/04/17 Dicyclomine [Bentyl] 20 mg PO TID #30 tab 02/09/17 Lactobacillus Acidophilus [Bacid 1 cap PO BID #14 cap 02/09/17 Acidophilus] Pantoprazole Sodium [Protonix] 40 mg PO DAILY #14 ect 02/09/17 metroNIDAZOLE [Flagyl] 500 mg PO Q8 #15 tab 02/09/17 Ibuprofen [Motrin Tab] 800 mg PO Q8 PRN #20 tab 04/15/18 Nitrofurantoin Macrocrystals 100 mg PO BID #14 cap 04/15/18 [Macrobid] - Allergies Allergies/Adverse Reactions: Allergies Allergy/AdvReac Type Severity Reaction Status Date / Time No Known Allergies Allergy Verified 02/04/17 11:34 Review of Systems ROS Statement: Except As Marked, All Systems Reviewed And Found Negative Constitutional: Negative for: Fever, Chills Gastrointestinal: Positive for: Abdominal Pain. Negative for: Nausea, Vomiting Genitourinary Female: Positive for: Dysuria, Frequency, Vaginal Discharge, Pelvic Pain. Negative for: Incontinence, Hematuria, Vaginal Bleeding Physical Exam - Reviewed Nursing Documentation Reviewed: Yes Vital Signs Reviewed: Yes - Physical Exam Appears: Positive for: Well, Non-toxic, No Acute Distress Skin: Positive for: Normal Color. Negative for: Rash Eye Exam: Positive for: Normal appearance Cardiovascular/Chest: Positive for: Regular Rate, Rhythm Respiratory: Positive for: Normal Breath Sounds Gastrointestinal/Abdominal: Positive for: Tenderness (Mild suprapubic tenderness with no rebound, guarding or distention). Negative for: Soft Back: Negative for: L CVA Tenderness, R CVA Tenderness Extremity: Positive for: Normal ROM Neurologic/Psych: Positive for: Alert, Oriented - Laboratory Results Urine POC: Negative Urine dip results: Positive for: Leukocyte Esterase (trace), Nitrate (positive) - ECG O2 Sat by Pulse Oximetry: 100 Pulse Ox Interpretation: Normal Medical Decision Making Medical Decision Makin52 y/o with dysuria and pelvic pain Plan: Urine dip Urine culture CHL/GC culture IM toradol Patient has concern for STD due to recent unprotected intercourse and vaginal discharge. She was medicated with 1 g of Zithromax oral dose along with flexion 50 mg IM Rocephin. Urine dip is positive for leukocytes and nitrites, initial dose Macrobid 100 mg given in ED. Patient reports improvement pain after Toradol injection. Prescriptions provided for Motrin and Macrobid, advised fluids, rest and follow-up with PMD or trade sales assistant. Disposition - Clinical Impression Clinical Impression: UTI (urinary tract infection), Possible exposure to STD - Patient ED Disposition Is Patient to be Admitted: No Counseled Patient/Family Regarding: Studies Performed, Diagnosis, Need For Followup, Rx Given - Disposition [facility]errals[facility] Disposition: Routine/Home Disposition Time: 03:54 Condition: STABLE Additional Instructions: Take prescription meds as directed. Drink plenty of fluids. Follow-up with [facility] in 2-3 days. Prescriptions: Ibuprofen [Motrin Tab] 800 mg PO Q8 PRN #20 tab PRN Reason: Pain, Moderate (4-7) Nitrofurantoin Macrocrystals [Macrobid] 100 mg PO BID #14 cap Instructions: Urinary Tract Infections in Adults, Sexually-Transmitted Diseases Forms: [facility] (Yi) Print Language: [id number]
[2018-04-15] MEDS ORDERED: cefTRIAXone (Rocephin) 250 mg Inj IM STA (03:26)
[2018-04-15] MEDS ORDERED: cefTRIAXone (Rocephin) 250 mg Inj ONE (03:41)
== END 2018-04-15 04:21 | disposition home or self-care (01) ==
LOC: H.ER 01:19
DX: N39.0 Urinary tract infection, site not specified (principal); Z11.3 Encounter for screening for infections with a predominantly sexual mode of transmission; I10 Essential (primary) hypertension
CPT/HCPCS: 81025; 87086; 87491; 87591; 96372; 99283; J0696; J1885

== ENCOUNTER 2019-04-04 15:32 | Emergency (ER) | payer MEDICARE ==
[2019-04-04 15:33] VITALS: BMI 28.3
--- NOTE | 2019-04-04 16:54 | ED PDOC ---
HPI: Abdomen Time Seen by Provider: 04/04/19 15:53 Chief Complaint (Nursing): Abdominal Pain Chief Complaint (Provider): Abdominal Pain History Per: Patient History/Exam Limitations: no limitations Onset/Duration Of Symptoms: Days (x 2 weeks) Current Symptoms Are (Timing): Still Present Location Of Pain/Discomfort: LLQ Quality Of Discomfort: "Pain" Associated Symptoms: Diarrhea, Back Pain Additional Complaint(s): 53 year old female with a history of HTN presents to the ED for evaluation of l eft sided abdominal pain for 2 weeks, now associated with left sided back pain. Patient reports that she saw her PMD who performed a sonogram, which revealed a left sided ovarian cyst, and prescribed an antibiotic and Motrin. She has been taking Motrin without relief. Her last dose was at 11 or 12 o'clock today. Denies vaginal bleeding, discharge and hematuria. PMD: Dr. Peña Abnormal Vaginal Bleeding: No Last Menstral Period: 2007 Past Medical History Reviewed: Historical Data, Nursing Documentation, Vital Signs Vital Signs: Last Vital Signs Temp 98.3 F 04/04/19 15:57 Pulse 68 04/04/19 15:57 Resp 16 04/04/19 15:57 BP 140/76 04/04/19 15:57 Pulse Ox 97 04/04/19 15:57 Primary Care Provider: Tommy Peña - Medical History PMH: HTN, Migraine Denies: Chronic Kidney Disease - Surgical History Surgical History: Appendectomy Other surgeries: abdominoplasty - Family History Family History: States: Unknown Family Hx - Home Medications Home Medications: Ambulatory Orders Medication Instructions Recorded Isosorbide Mononitrate ER [Imdur 30 mg PO DAILY 02/04/17 ER] Losartan [Cozaar] 25 mg PO DAILY 02/04/17 traMADol [Ultram] 50 mg PO BID PRN 02/04/17 Dicyclomine [Bentyl] 20 mg PO TID #30 tab 02/09/17 Lactobacillus Acidophilus [Bacid 1 cap PO BID #14 cap 02/09/17 Acidophilus] Pantoprazole Sodium [Protonix] 40 mg PO DAILY #14 ect 02/09/17 metroNIDAZOLE [Flagyl] 500 mg PO Q8 #15 tab 02/09/17 Ibuprofen [Motrin Tab] 800 mg PO Q8 PRN #20 tab 04/15/18 Nitrofurantoin Macrocrystals 100 mg PO BID #14 cap 04/15/18 [Macrobid] Ibuprofen [Motrin Tab] 800 mg PO Q6 #40 tab 04/04/19 Oxycodone HCl/Acetaminophen 1 each PO Q6 PRN #12 tablet 04/04/19 [Percocet 10-325 mg Tablet] - Allergies Allergies/Adverse Reactions: Allergies Allergy/AdvReac Type Severity Reaction Status Date / Time No Known Allergies Allergy Verified 04/04/19 15:59 Review of Systems ROS Statement: Except As Marked, All Systems Reviewed And Found Negative Gastrointestinal: Positive for: Abdominal Pain (LLQ), Diarrhea (mild). Negative for: Constipation Genitourinary Female: Negative for: Frequency, Incontinence, Hematuria, Vaginal Discharge, Vaginal Bleeding Musculoskeletal: Positive for: Back Pain (left sided) Physical Exam - Reviewed Nursing Documentation Reviewed: Yes Vital Signs Reviewed: Yes - Physical Exam Appears: Positive for: No Acute Distress Head Exam: Positive for: ATRAUMATIC, NORMAL INSPECTION, NORMOCEPHALIC Skin: Positive for: Normal Color, Warm, Dry Eye Exam: Positive for: EOMI, Normal appearance, PERRL Neck: Positive for: Normal, Painless ROM, Supple Cardiovascular/Chest: Positive for: Regular Rate, Rhythm. Negative for: Murmur Respiratory: Positive for: Normal Breath Sounds. Negative for: Respiratory Distress Gastrointestinal/Abdominal: Positive for: Tenderness (LLQ), Other (surgical scar on lower abdomen from ; surgically reconstructed umbilicus; laparascopi c scars). Negative for: Mass, Guarding Extremity: Positive for: Normal ROM (x 4). Negative for: Deformity Neurological/Psych: Positive for: Awake, Alert, Normal Tone, Oriented (x 3). Negative for: Motor/Sensory Deficits - Laboratory Results Result Diagrams: 04/04/19 16:56 04/04/19 16:56 - ECG O2 Sat by Pulse Oximetry: 97 (RA) Pulse Ox Interpretation: Normal Medical Decision Making Medical Decision Makin:24 MDM: History of left ovarian cyst with left sided abdominal pain Will obtain labs and CT abd/pelvis 2 mg of morphine for pain Reassess 18:54 CT FINDINGS: LOWER THORAX: No visible consolidation, pleural effusion, or pneumothorax. LIVER: Hepatomegaly. Too small to characterize hepatic hypodensities; statistically likely cysts or hemangiomas. 6 mm focus of enhancement at the hepatic dome (series 3, image 12), indeterminate. GALLBLADDER AND BILE DUCTS: No calcified gallstones. Question small sludge within the distal CBD at the level of the ampulla. PANCREAS: Unremarkable. SPLEEN: Unremarkable. ADRENALS: Unremarkable. KIDNEYS AND URETERS: The kidneys enhance symmetrically. No hydronephrosis or obstructing calculus identified. 16 mm hypodense left renal cyst. VASCULATURE: No aortic aneurysm. No atherosclerotic calcification or mural plaque present. BOWEL: Stomach is nondistended. Lack of oral contrast limits evaluation for bowel pathology. Bowel loops appear within normal limits of caliber without evidence of obstruction. APPENDIX: The appendix is not identified. No secondary signs of acute appendicitis. PERITONEUM: No significant free fluid. No definite free air. LYMPH NODES: No bulky adenopathy identified. BLADDER: Unremarkable. REPRODUCTIVE: Uterus is present. BONES: Osseous demineralization. Degenerative changes. OTHER FINDINGS: None. IMPRESSION: The appendix is not identified. No secondary signs of acute appendicitis appreciated. Moderate diffuse constipation. Nonspecific gastric wall thickening of an nondistended stomach; correlate clinically for possibility of gastritis. Hepatomegaly. Too small to characterize hepatic hypodensities; statistically likely cysts or hemangiomas. 6 mm focus of enhancement at the hepatic dome, indeterminate. Question small sludge within the distal CBD at the level of the ampulla. 16 mm hypodense left renal cyst. Additional incidental findings as above. 22:32 US Findings Uterus Measures 5.7 x 1.7 x 3 cm. Normal in size and appearance. No fibroid or other mass lesion seen. Endometrium Measures 4 mm in diameter. Unremarkable. Right ovary Measures 1.5 x 1.2 x 1.4 cm. No solid mass. Normal flow. Left ovary Measures 1.2 x 1.1 x 1.7 cm. No solid mass. Normal flow. Free fluid No significant free fluid noted. Other Findings None. Impression Unremarkable pelvic ultrasound. 22:38 Patient is not showing up in [facility] and will be discharged with a prescription for Perocet. Patient was counseled on the risks of addiction and dependence. Advised to use medication only when pain is severe. Patient expressed understanding. Scribe Attestation: Documented by Cammy Gtz, acting as a scribe for Inna Coello MD. Provider Scribe Attestation: All medical record entries made by the Scribe were at my direction and personally dictated by me. I have reviewed the chart and agree that the record accurately reflects my personal performance of the history, physical exam, medical decision making, and the department course for this patient. I have also personally directed, reviewed, and agree with the discharge instructions and disposition. Disposition - Clinical Impression Clinical Impression: Abdominal pain in female - Patient ED Disposition Is Patient to be Admitted: No - Disposition [facility]errals[facility]] Jim Higgins MD [Staff Provider] - Disposition: Routine/Home Disposition Time: 22:40 Condition: IMPROVED Additional Instructions: Follow up with hose tender and project consultant for further workup of abdominal pain. Prescriptions: Ibuprofen [Motrin Tab] 800 mg PO Q6 #40 tab Oxycodone HCl/Acetaminophen [Percocet 10-325 mg Tablet] 1 each PO Q6 PRN #12 tablet PRN Reason: Pain, Severe (8-10) Instructions: Acute Abdomen (Belly Pain) Forms: [employer] (Divehi) Print Language: NEPALI
[2019-04-04 17:02] LABS: BASO # 0.1 K/uL (0.0-0.2); BASO % 0.8 % (0.0-2.0); EOS # 0.2 K/uL (0.0-0.7); EOS % 2.5 % (0.0-4.0); HEMOGLOBIN 12.4 g/dL (12.0-16.0); LYMPH # 2.1 K/uL (1.0-4.3); LYMPH % 28.9 % (20.0-40.0); MEAN CELL VOLUME 91.7 fl (81.0-99.0); MEAN CORPUSCULAR HEMOGLOBIN 30.7 pg (27.0-31.0); MEAN CORPUSCULAR HGB CONC 33.5 g/dL (33.0-37.0); MONO # 0.6 K/uL (0.0-0.8); MONO % 8.8 % (0.0-10.0); NEUT # 4.3 K/uL (1.8-7.0); NRBC % 0.1 % (0.0-0.0); RBC 4.03 Mil/uL (3.80-5.20); RED CELL DISTRIBUTION WIDTH 14.2 % (11.5-14.5); WHITE BLOOD COUNT 7.2 K/uL (4.8-10.8)
[2019-04-04 17:22] LABS: ALB/GLOB RATIO 1.4 (1.0-2.1); ALT/SGPT 25 U/L (9-52); AST/SGOT 26 U/L (14-36); BLOOD UREA NITROGEN 20 mg/dl (7-17); CALCIUM 9.1 mg/dL (8.4-10.2); GFR NON-AFRICAN AMERICAN > 60
[2019-04-04] MEDS ORDERED: Iohexol 300 100 ML IJ ONE (17:27)
[2019-04-04] MEDS ORDERED: Sodium Chloride 0.9% 50 ML IV ONE (17:28)
[2019-04-04 17:41] LABS: SQUAMOUS EPITHIAL < 1 /hpf (0-5); URINE BILIRUBIN NEGATIVE (NEGATIVE); URINE CLARITY CLEAR (Clear); URINE COLOR STRAW (YELLOW); URINE GLUCOSE (UA) NEG (NEGATIVE); URINE LEUKOCYTE ESTERASE NEG Leu/uL (Negative); URINE PROTEIN NEGATIVE (NEGATIVE); URINE UROBILINOGEN 0.2-1.0 mg/dL (0.2-1.0)
[2019-04-04 18:06] LABS: URINE BLOOD SMALL (NEGATIVE)
--- NOTE | 2019-04-04 18:57 | CT ---
Date of service: 04/04/2019 PROCEDURE: CT Abdomen and Pelvis with contrast HISTORY: worsening RLQ pain radiating to back COMPARISON: CT of the abdomen pelvis with contrast performed 02/04/17, MRCP and abdomen without and with IV contrast performed 02/05/17 TECHNIQUE: Contrast dose: 90 mL Omnipaque 300 IV Radiation dose: Total exam DLP = 355.45 mGy-cm. This CT exam was performed using one or more of the following dose reduction techniques: Automated exposure control, adjustment of the mA and/or kV according to patient size, and/or use of iterative reconstruction technique. FINDINGS: LOWER THORAX: No visible consolidation, pleural effusion, or pneumothorax. LIVER: Hepatomegaly. Too small to characterize hepatic hypodensities; statistically likely cysts or hemangiomas. 6 mm focus of enhancement at the hepatic dome (series 3, image 12), indeterminate. GALLBLADDER AND BILE DUCTS: No calcified gallstones. Question small sludge within the distal CBD at the level of the ampulla. PANCREAS: Unremarkable. SPLEEN: Unremarkable. ADRENALS: Unremarkable. KIDNEYS AND URETERS: The kidneys enhance symmetrically. No hydronephrosis or obstructing calculus identified. 16 mm hypodense left renal cyst. VASCULATURE: No aortic aneurysm. No atherosclerotic calcification or mural plaque present. BOWEL: Stomach is nondistended. Lack of oral contrast limits evaluation for bowel pathology. Bowel loops appear within normal limits of caliber without evidence of obstruction. APPENDIX: The appendix is not identified. No secondary signs of acute appendicitis. PERITONEUM: No significant free fluid. No definite free air. LYMPH NODES: No bulky adenopathy identified. BLADDER: Unremarkable. REPRODUCTIVE: Uterus is present. BONES: Osseous demineralization. Degenerative changes. OTHER FINDINGS: None. IMPRESSION: The appendix is not identified. No secondary signs of acute appendicitis appreciated. Moderate diffuse constipation. Nonspecific gastric wall thickening of an nondistended stomach; correlate clinically for possibility of gastritis. Hepatomegaly. Too small to characterize hepatic hypodensities; statistically likely cysts or hemangiomas. 6 mm focus of enhancement at the hepatic dome, indeterminate. Question small sludge within the distal CBD at the level of the ampulla. 16 mm hypodense left renal cyst. Additional incidental findings as above.
[2019-04-04 23:10] VITALS: BP 128/64; PULSE 78; RESP 18; TEMP 97.7
--- NOTE | 2019-04-05 11:16 | US ---
Date of service: 04/04/2019 HISTORY: rule out left ovarian torsion COMPARISON: None available. TECHNIQUE: Transabdominal FINDINGS: UTERUS: Measures uterus postmenopausal appearing measuring 8.7 x 1.7 x 3.0 cm cm. Anteverted. No fibroid or other mass lesion seen. ENDOMETRIUM: Measures 4 mm in diameter. Unremarkable. CERVIX: No cervical abnormality identified. RIGHT OVARY: Measures 1.5 x 1.2 x 1.4 cm. No solid mass. Normal flow. LEFT OVARY: Measures 1.2 x 1.1 x 1.7 cm. No solid mass. Normal flow. FREE FLUID: No significant free fluid noted. OTHER FINDINGS: Prominent bowel gas noted. IMPRESSION: No gross findings to suggest ovarian torsion. Postmenopausal appearing uterus and ovaries. Prominent bowel gas Concordant results (preliminary interpretation) provided by [employer].
[2019-04-05 15:43] VITALS: O2SAT 97
== END 2019-04-04 23:09 | disposition home or self-care (01) ==
LOC: H.ER 15:32
DX: R10.2 Pelvic and perineal pain (principal); I10 Essential (primary) hypertension
CPT/HCPCS: 74177; 76856; 80053; 81003; 81025; 85025; 96374; 96376; 99284; J2270; Q9967